=== PATIENT | male | born 2000 | race African-American/Black ===

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

== ENCOUNTER 2019-02-11 11:24 | Emergency (ER) | payer MEDICAID ==
[~2019-02-11] VITALS: Ht 188 cm; Wt 67.1 kg
[2019-02-11 12:33] VITALS: BP 118/88
== END 2019-02-11 13:28 | disposition home or self-care (01) ==
LOC: ER 11:24
DX: L02.01 Cutaneous abscess of face (principal)
CPT/HCPCS: 10060

== ENCOUNTER 2019-04-19 08:20 | Emergency (ER) | payer MEDICAID ==
[~2019-04-19] VITALS: Ht 185.4 cm; Wt 67.1 kg
[2019-04-19 09:27] VITALS: BP 129/72
[2019-04-19] MEDS ORDERED: LIDOCAINE 1% HCL (LOCAL ANESTH.) INJ 20ML MDV IJ ONE (09:30)
== END 2019-04-19 10:07 | disposition home or self-care (01) ==
LOC: ER 08:20
DX: H66.42 Suppurative otitis media, unspecified, left ear (principal)
CPT/HCPCS: 69000; 99283; J2001

== ENCOUNTER 2020-06-08 10:51 | Emergency (ER) | payer MEDICAID ==
[~2020-06-08] VITALS: Ht 188 cm; Wt 71.7 kg
[2020-06-08 11:58] VITALS: BP 132/94
== END 2020-06-08 12:10 | disposition home or self-care (01) ==
LOC: ER 10:51
DX: H92.01 Otalgia, right ear (principal); L08.9 Local infection of the skin and subcutaneous tissue, unspecified

== ENCOUNTER 2020-06-18 10:52 | Emergency (ER) | payer MEDICAID ==
[~2020-06-18] VITALS: Ht 188 cm; Wt 69.9 kg
[2020-06-18 10:54] VITALS: BP 123/79
== END 2020-06-18 12:16 | disposition home or self-care (01) ==
LOC: ER 10:52
DX: H66.41 Suppurative otitis media, unspecified, right ear (principal)
CPT/HCPCS: 69000